=== PATIENT | female | born 1980 | race Caucasian/White ===

== ENCOUNTER 2016-12-14 05:33 | Day surgery (SDC) | payer OTHER ==
[~2016-12-14] VITALS: Ht 162.6 cm; Wt 59.0 kg
[~2016-12-14 05:33] MED LIST: ALEVE220 MG PO; Augmentin PO; ENDOCET 5-3251 EACH PO; FLEXERIL10 MG PO; Motrin PO; PRENATAL1 EACH PO; PRILOSEC20 MG PO; PROGESTERONE IM; VICODIN 5-3001 EACH PO; no home
[2016-12-14 05:53] VITALS: BP 117/80
[2016-12-14 07:34] LABS: METH RESISTANT S AUREUS PCR NEGATIVE (NEGATIVE)
[2016-12-14 07:55] LABS: PROBE CHECK PASS; SPECIMEN PROCESSING CONTROL PASS
[2016-12-14] MEDS ORDERED: IBUPROFEN800 MG PO (08:46)
[2016-12-14] MEDS ORDERED: ENDOCET 5-3251 EACH PO (08:46)
[2016-12-14 10:01] VITALS: BP 112/59
[2016-12-14 10:05] VITALS: BP 112/59
[2016-12-14 11:24] VITALS: BP 118/72
== END 2016-12-14 11:38 | disposition home or self-care (01) ==
LOC: SDC 05:33
PROVIDERS: Obstetrics & Gynecology
PROC: 0UT9FZZ Resection of Uterus, Via Natural or Artificial Opening With Percutaneous Endoscopic Assistance (ICD-10-PCS; principal; 2016-12-14)
PROC: 0UT7FZZ Resection of Bilateral Fallopian Tubes, Via Natural or Artificial Opening With Percutaneous Endoscopic Assistance (ICD-10-PCS; principal; 2016-12-14)
DX: N92.0 Excessive and frequent menstruation with regular cycle (principal); N80.0 Endometriosis of uterus; Z80.41 Family history of malignant neoplasm of ovary; Z88.8 Allergy status to other drugs, medicaments and biological substances; Z82.49 Family history of ischemic heart disease and other diseases of the circulatory system; Z80.3 Family history of malignant neoplasm of breast; Z81.1 Family history of alcohol abuse and dependence
CPT/HCPCS: 87641; 88307; J0131; J0690; J1100; J1885; J2175; J2250; J2270; J2405; J2710; J2765; J3010